=== PATIENT | female | born 1975 | race Caucasian/White ===

== ENCOUNTER 2017-11-18 07:00 | Outpatient (RCR) | payer OTHER, SELFPAY ==
--- NOTE | 2017-11-11 08:00 | HP.PTREVAL_ITS ---
Emily Cohn, SAY-Pat, EDMAR It has been my pleasure to treat CHADWICK TUBBS over the last 5 visits for B shoulder pain. Please see the progress note below for an update on the physical therapy plan of care! Subjective: Pain in arma and tingling R UE yesterday worse than it used to be. ex really hurts. Doing bands at home. It may make L shoulder worse. States doctor said MRI is next step and if we felt approp they would it. Objective/Function: c/s ret adn ret/ext give sharp pain in L scapula not improving. UE AROM is full and without increased pain. Strength in UE is unchanged. Repeated flexion is not nearly as painful as ret ext and seems to improve ext and neck pain slightly. PT FRUSTRATED WITH LACK OF IMPROVEMENT. Plan Plan: f/u one week to monitor tolerance to c/s flexion exercises. Pt to contact doctor regarding lack of progress for next medical step(MRI? neck) Goals Goal 1:: Full c/s aROM without increased pain Goal Time Frame: 4-6 Weeks Goal Progress: Not Progressing Goal 2:: Pain level 1/10 at worst in neck and no UE symptoms Goal Time Frame: 4-6 Weeks Goal Progress: Not Progressing Goal 3:: Pt feel 75% improved overall and I in appropriate HEP. Goal Time Frame: 4-6 Weeks Goal Progress: Not Progressing Goal 4:: Sleep without need of meds Goal Time Frame: 4-6 Weeks Goal Progress: Not Progressing Anticipated Interventions Patient/Client Instruction: Educate patient on: Condition, Plan of Care For the Purpose of:: To decrease pain, To improve ability of physical actions for home/community/work/leisure Therapeutic Exercise to Include: Strength training, Postural training, Passive ROM, Active ROM, Dereck Exercises For the Purpose of:: To decrease pain, To increase ROM, To improve muscle performance and motor function, To improve ability of physical actions for home/ community/work/leisure, To improve gait and locomotor functions TENS: Yes Thermo therapy (hot pack): Yes For the Purpose of:: To decrease pain Please do not hesitate to contact me at [phone] by phone or Fax: if you have questions or concerns regarding this new plan of care! Sincerely, Dayday Hall, BRYANT, OC
--- NOTE | 2017-11-18 07:29 | HP.PTDCSUM_ITS ---
HP - PT D/C Summary It has been my pleasure to treat CHADW[place] TUBBS under orders from Emily Cohn , GENARO, EDMAR for the diagnosis of B shoulder pain for a total of 6 visit(s) . Discharge Date: 11/18/17 Please see the following information for a summary of their discharge status. - Subjective Subjective: MRI scheduled for Saturday. Been doing her home exercise in between having a cold. Started feeling pinches below scapula. Doing most of strengthening. Horiz adduction reporduced pinching feeling below scapula. Flexion is relaxing but no change to overall symptoms. Having more numbness R UE adn more pinching in scapula. Overall slightly worse. - Pain Neck pain Pain Intensity (Out of 10): 2 - Objective Objective/Function: 50 ext 70 B rotation, feels tight and does not want to go any further. C/S still sits protracted. No change to neck ROM with manual traction or repeated ex. No unusual tenderness in c/s mm. OVERALL PRESENTATION NOT CHANGING DRAMATICALLY. - Goals Goal 1:: Full c/s aROM without increased pain Goal Progress: Not Progressing Goal 2:: Pain level 1/10 at worst in neck and no UE symptoms Goal Progress: Not Progressing Goal 3:: Pt feel 75% improved overall and I in appropriate HEP. Goal Progress: Not Progressing Goal 4:: Sleep without need of meds Goal Progress: Not Progressing - Plan Plan: Return to doctor after MRI for next approp step as patient is not improving. - D/C Information Discharge Comments: Pt to have MRI Saturday. Recommend return to doctor for next medical step. If there are questions or concerns regarding this patient's physical therapy, please feel free to call me at [phone]. Thank you for the referral of this patient. Sincerely, Dayday Hall, DPT, OC
== END 2017-11-18 19:00 | disposition home or self-care (01) ==
LOC: PT 07:00
PROVIDERS: Family Provider Nurse Practitioner; PCP Nurse Practitioner; Visit Provider Nurse Practitioner
DX: M25.511 Pain in right shoulder (principal); M25.512 Pain in left shoulder
CPT/HCPCS: 97110; 97162; 97530; G8978; G8979

== ENCOUNTER → 2023-08-16 | Outpatient (CLI) | payer OTHER, SELFPAY | END | disposition home or self-care (01) | PROVIDERS: PCP Nurse Practitioner; Referring Provider Internal Medicine Endocrinology, Diabetes & Metabolism; Visit Provider Internal Medicine Endocrinology, Diabetes & Metabolism | DX: E27.9 Disorder of adrenal gland, unspecified (principal) | CPT/HCPCS: 36415; 82533 ==

== ENCOUNTER → 2023-08-19 | Outpatient (CLI) | payer OTHER, SELFPAY ==
[2023-08-19 10:16] LABS: Insulin 4.3 mU/L (2.6-37.6); Vitamin D,25 Hydroxy 42.6 ng/mL
[2023-08-19 13:53] LABS: AST(SGOT) 13 U/L (15-37); Alanine Aminotransfer ALT/SGPT 23 U/L (13-56); Albumin, Serum 3.3 g/dL (3.2-5.0); Alkaline Phosphatase 67 U/L (45-117); Anion Gap 1 (5-15); BUN 12 mg/dL (7-18); BUN/Creat Ratio 15.2 RATIO (10-20); Calcium,Total 8.3 mg/dL (8.5-10.1); Chloride 113 mmol/L (98-107); Creatinine, Serum 0.79 mg/dL (0.55-1.02); EST Glomerular Filtration Rate 82 mL/min (>60); Est Glom Filt Rate - Afr Amer 100 mL/min (>60); Estradiol 30.9 pg/mL; Ferritin 74 ng/mL (8-252); Globulin 3.3 g/dL (2.2-4.2); Glucose 95 mg/dL (74-106); Potassium 3.7 mmol/L (3.5-5.1); Protein, Total 6.6 g/dL (6.4-8.2); Sodium Level 138 mmol/L (136-145); T4 Free Direct 0.98 ng/dL (0.76-1.46); Thyroid Stim Hormone (TSH) 1.03 uIU/mL (0.358-3.74)
== END | disposition home or self-care (01) ==
PROVIDERS: PCP Nurse Practitioner; Referring Provider Internal Medicine Endocrinology, Diabetes & Metabolism; Visit Provider Internal Medicine Endocrinology, Diabetes & Metabolism
DX: E88.810 Metabolic syndrome (principal); E04.8 Other specified nontoxic goiter; E55.9 Vitamin D deficiency, unspecified; N95.1 Menopausal and female climacteric states
CPT/HCPCS: 36415; 80053; 82306; 82627; 82670; 82728; 83001; 83525; 84439; 84443; 82626

== ENCOUNTER → 2023-11-15 | Outpatient (CLI) | payer SELFPAY ==
--- OUTSIDE RECORDS SUMMARY | 2023-11-15 08:16 | XMS RPT_ITS | CCD ---
Author Name Unknown Address [address] [place] [id number] Organization [facility] Care Team Providers Care Bonding Equipment Operator Name Role Phone [place], [facility] Primary Care Unavailable ANA MOODY Attending Unavailable Results Test Name Value Interpretation Reference Range Facil ity Encounters Encounter Date Encounter Type Care Provider Facility Start: 03-07-2023 End: 03-08-2023 ambulatory [facility] [place] Facility:[facility] Payers Date Payer Category Payer Unknown [id number] 1975 Unknown [id number] Summary Purpose Family History No Family History Records Found Advance Directives No Advanced Directives Records Found Additional Source Comments INFORMATION SOURCE (unrecogn ized section and content) FOR RECORDS PERTAINING TO PATIENTS WHO ARE OR HAVE BEEN ENROLLED IN A CHEMICAL DEPENDENCY/SUBSTANCEABUSE PROGRAM, SOME INFORMATION MAY BE OMITTED. This clinical summary was aggregated from multiple sources. Caution should be exercised in using it in the provision of clinical care. This summary normalizes information from multiple sources, and as a consequence, information in this document may materially change the coding, format and clinical context of patient data. In addition, data may be omitted in some cases. CLINICAL DECISIONS SHOULD BE BASED ON THE PRIMARY CLINICAL RECORDS. [employer] provides no warranty or guarantee of the accuracy or completeness of information in this document.
[2023-11-15 09:15] LABS: AST(SGOT) 18 U/L (15-37); Alanine Aminotransfer ALT/SGPT 25 U/L (13-56); Albumin, Serum 3.4 g/dL (3.2-5.0); Alkaline Phosphatase 69 U/L (45-117); Anion Gap 2 (5-15); BUN 14 mg/dL (7-18); BUN/Creat Ratio 14.1 RATIO (10-20); Chloride 109 mmol/L (98-107); Creatinine, Serum 0.99 mg/dL (0.55-1.02); EST Glomerular Filtration Rate 63 mL/min (>60); Est Glom Filt Rate - Afr Amer 77 mL/min (>60); Globulin 3.3 g/dL (2.2-4.2); Glucose 82 mg/dL (74-106); Potassium 4.3 mmol/L (3.5-5.1); Protein, Total 6.7 g/dL (6.4-8.2); Sodium Level 140 mmol/L (136-145)
== END | disposition home or self-care (01) ==
LOC: LAB 08:14
PROVIDERS: Referring Provider Internal Medicine Endocrinology, Diabetes & Metabolism; Visit Provider Internal Medicine Endocrinology, Diabetes & Metabolism
DX: E88.810 Metabolic syndrome (principal)
CPT/HCPCS: 36415; 80053

== ENCOUNTER → 2024-07-09 | Outpatient (CLI) | payer OTHER, SELFPAY ==
[2024-07-09 15:27] LABS: Vitamin D,25 Hydroxy 37.5 ng/mL
[2024-07-09 15:33] LABS: ALB/GLOB Ratio 1.2 RATIO (0.9-2.4); AST(SGOT) 17 U/L (15-37); Alanine Aminotransfer ALT/SGPT 16 U/L (13-56); Albumin, Serum 3.6 g/dL (3.2-5.0); Alkaline Phosphatase 69 U/L (45-117); Anion Gap 5 (5-15); BUN 11 mg/dL (7-18); Calcium,Total 8.8 mg/dL (8.5-10.1); Chloride 107 mmol/L (98-107); Creatinine, Serum 1.22 mg/dL (0.55-1.02); EST Glomerular Filtration Rate 50 mL/min (>60); Est Glom Filt Rate - Afr Amer 60 mL/min (>60); Glucose 84 mg/dL (74-106); Potassium 3.5 mmol/L (3.5-5.1); Protein, Total 6.6 g/dL (6.4-8.2); Sodium Level 139 mmol/L (136-145)
== END | disposition home or self-care (01) ==
LOC: LAB 14:04
PROVIDERS: Referring Provider Internal Medicine Endocrinology, Diabetes & Metabolism; Visit Provider Internal Medicine Endocrinology, Diabetes & Metabolism
DX: E88.810 Metabolic syndrome (principal); E04.8 Other specified nontoxic goiter; E55.9 Vitamin D deficiency, unspecified
CPT/HCPCS: 36415; 80053; 82306; 84443